=== PATIENT | male | born 1955 | race Caucasian/White ===

== ENCOUNTER 2024-08-02 18:50 | Emergency (ER) | payer SELFPAY ==
[2024-08-02 19:18] VITALS: BP 159/82; PULSE 85; RESP 17; TEMP 36.6; O2SAT 92; BMI 37.3
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
[2024-08-02] MEDS: HYDROcodone-acetaminophen 5-325 mg Tablet 1 TAB PO (21:00)
[2024-08-02 21:05] VITALS: BP 159/82; PULSE 85; RESP 17; TEMP 36.6; O2SAT 92
== END 2024-08-02 21:07 | disposition home or self-care (01) ==
PROVIDERS: Emergency Provider Nurse Practitioner Family
DX: S43.402A Unspecified sprain of left shoulder joint, initial encounter (principal); S00.01XA Abrasion of scalp, initial encounter; V49.40XA Driver injured in collision with unspecified motor vehicles in traffic accident, initial encounter
CPT/HCPCS: 70450; 73030; 99284